=== PATIENT | female | born 1960 | race Two or more races ===

== ENCOUNTER → 2024-10-06 | Outpatient (CLI) | payer OTHER ==
[2024-10-06 10:11] LABS: Hematocrit 39.4 % (36.0-46.0); Hemoglobin 12.7 g/dL (12.2-16.2); Mean Corpuscular Hemoglobin 24.1 pg (28.0-32.0); Mean Corpuscular Volume 74.6 fL (80.0-100.0); Nucleated Red Blood Cells % 0.0 %
[2024-10-06 10:41] LABS: Alanine Aminotransferase 17 U/L (7-40); Alkaline Phosphatase 92 U/L (46-116); Anion Gap 10 (5-15); BUN/Creatinine Ratio 10.7 (10.0-20.0); Bilirubin, Total 0.5 mg/dL (0.2-1.0); Blood Urea Nitrogen 9 mg/dL (9-23); Calcium 9.2 mg/dL (8.7-10.4); Carbon Dioxide 27 mmol/L (20-31); Chloride 105 mmol/L (98-107); Glucose 93 mg/dL (74-106); HDL Cholesterol 52 mg/dL (40-59); Potassium 3.9 mmol/L (3.5-5.1); Sodium 142 mmol/L (136-145); Total Protein 7.5 g/dL (5.7-8.2)
[2024-10-06 10:43] LABS: Albumin 4.9 g/dL (3.2-4.8); Cholesterol 246 mg/dL (< 200); Triglycerides 223 mg/dL (< 150)
== END | disposition home or self-care (01) ==
LOC: LAB 09:47
PROVIDERS: ATTEND Nurse Practitioner Family
DX: I10 Essential (primary) hypertension (principal); E66.9 Obesity, unspecified; Z00.01 Encounter for general adult medical examination with abnormal findings
CPT/HCPCS: 36415; 80053; 80061; 82306; 84443; 85025

== ENCOUNTER → 2024-12-03 | Outpatient (CLI) | payer OTHER | END | disposition home or self-care (01) | LOC: Rad HDHVI 09:03 | PROVIDERS: ATTEND Internal Medicine Cardiovascular Disease | DX: I10 Essential (primary) hypertension (principal) | CPT/HCPCS: 93306 ==

== ENCOUNTER 2024-12-15 09:05 | Outpatient (CLI) | payer OTHER ==
[~2024-12-15] VITALS: Ht 162.6 cm; Wt 78.9 kg
== END 2024-12-15 17:00 | disposition home or self-care (01) ==
LOC: Rad HDHVI 09:05
PROVIDERS: ATTEND Internal Medicine Cardiovascular Disease
DX: R00.0 Tachycardia, unspecified (principal); I49.1 Atrial premature depolarization; I49.3 Ventricular premature depolarization; Z13.6 Encounter for screening for cardiovascular disorders; I10 Essential (primary) hypertension; E78.00 Pure hypercholesterolemia, unspecified; R06.02 Shortness of breath; Z82.49 Family history of ischemic heart disease and other diseases of the circulatory system
CPT/HCPCS: 78452; 93017; A9500; 96374

== ENCOUNTER 2025-01-20 09:00 | Outpatient (CLI) | payer OTHER | END 2025-01-20 17:00 | disposition home or self-care (01) | LOC: Rad HDHVI 09:00 | PROVIDERS: ATTEND Internal Medicine Cardiovascular Disease | DX: I10 Essential (primary) hypertension (principal) | CPT/HCPCS: 93880 ==

== ENCOUNTER → 2025-02-06 | Day surgery (SDC) | payer OTHER ==
[2025-02-04 10:42] LABS: Hematocrit 39.7 % (36.0-46.0); Hemoglobin 12.9 g/dL (12.2-16.2); Mean Corpuscular Hemoglobin 26.3 pg (28.0-32.0); Mean Corpuscular Volume 81.1 fL (80.0-100.0); Nucleated Red Blood Cells % 0.0 %
[2025-02-04 11:00] LABS: INR 0.94 (0.9-1.15); Partial Thromboplastin Time 24.8 SEC (24.5-34.5); Prothrombin Time 10.0 sec (9.3-11.8)
[2025-02-04 11:05] LABS: Alanine Aminotransferase 37 U/L (7-40); Albumin 4.6 g/dL (3.2-4.8); Alkaline Phosphatase 109 U/L (46-116); Anion Gap 7 (5-15); BUN/Creatinine Ratio 17.3 (10.0-20.0); Bilirubin, Total 0.5 mg/dL (0.2-1.0); Blood Urea Nitrogen 17 mg/dL (9-23); Calcium 9.5 mg/dL (8.7-10.4); Carbon Dioxide 30 mmol/L (20-31); Chloride 104 mmol/L (98-107); Glucose 93 mg/dL (74-106); Potassium 4.0 mmol/L (3.5-5.1); Sodium 141 mmol/L (136-145); Total Protein 7.8 g/dL (5.7-8.2)
[2025-02-04 11:07] LABS: Urine Protein, UAD Negative (Negative)
[~2025-02-06] VITALS: Ht 162.6 cm; Wt 80.7 kg
[~2025-02-06] MED LIST: ATOR10TA PO; CHOL20007 PO; FINA5TAB4 PO; MELA3TAB27 PO; MULT-1166 PO; VALS1TAB57 PO; [UNRECOGNIZED DRUG - CODE] PO
[2025-02-06] MEDS: fentaNYL CITRATE 100 MCG/2 ML VL ONE (09:24)
[2025-02-06] MEDS: MIDAZOLAM HCL 2MG/2ML 2ml VIAL (1mg/ml) ONE (09:24)
[2025-02-06 09:48] VITALS: PULSE 85; RESP 16; TEMP 97.6; O2SAT 96
--- NOTE | 2025-02-06 09:51 | DVHNC2 ---
Procedure - DATE: FEBRUARY 06, 2025 PROCEDURE PERFORMED BY: KEL MELÉNDEZ MD REFERRING PROVIDER: STEVIE REYES PROCEDURE PERFORMED: 1. COLONOSCOPY WITH MODERATE SEDATION 2. COLONOSCOPY WITH ENDOSCOPIC MUCOSAL RESECTION 3. COLONOSCOPY WITH ENDOCLIP PLACEMENT X3 PREPROCEDURE DIAGNOSIS: 1. COLON CANCER SCREENING POSTPROCEDURE DIAGNOSIS: 1. 2 CM FLAT ASCENDING COLON POLYP 2. MODERATE LEFT-SIDED DIVERTICULOSIS 3. SMALL INTERNAL EXTERNAL HEMORRHOIDS INDICATIONS FOR PROCEDURE: THE PATIENT IS A 64-YEAR-OLD MALE PRESENTS FOR OUTPATIENT COLONOSCOPY FOR SCREENING. HE IS AT AVERAGE RISK. MEDICATIONS USED: 5 MG OF VERSED IV AND 75MCG OF FENTANYL IV DETAILS OF THE PROCEDURE: Informed consent was obtained after risks benefits and alternatives were discussed at length with the patient. The patient gave consent to the procedure as well as a medication used for sedation. He was placed in the left lateral decubitus position. Digital rectal exam showed internal hemorrhoids. An Olympus variable torsion pediatric colonoscope was inserted into the rectum and advanced to the cecum. The cecum was identified by the ileocecal valve and the appendiceal orifice. The scope was then withdrawn. The prep was good with only small amounts and stool. [place] bowel prep score of nine was noted. The patient had one 2 cm flat polyp in the ascending colon that needed to be lifted with endo left in removed with hot snare. Attempt at cold snare was not successful. The polyp was completely removed in one piece with hot snare polypectomy. The patient had moderate left-sided diverticulosis. Retroflexion showed internal hemorrhoids. More than 10 minutes withdrawal time was noted. The patient tolerated the procedure well. COLONOSCOPY START TIME: 929 CECUM TIME: 931 COLONOSCOPY END TIME: 945 IMPRESSION: 1. Ascending colon polyp 2. Diverticulosis of colon 3. Small internal external hemorrhoids RECOMMENDATIONS: 1. FOLLOW UP WITH PRIMARY CARE PHYSICIAN 2. HIGH-FIBER DIET 3. REPEAT COLONOSCOPY IN 3 YEARS UNLESS OTHERWISE INDICATED BY SYMPTOMS OR FAMILY HISTORY OR PATHOLOGY 4. WE WILL OBSERVE FOR ANY IMMEDIATE COMPLICATION I WOULD LIKE TO THANK DR. STEVIE REYES FOR THIS REFERRAL KEL MELÉNDEZ MD Feb 06, 2025 09:51
[2025-02-06 10:10] VITALS: BP 109/64; PULSE 83; RESP 15; O2SAT 95
== END | disposition home or self-care (01) ==
LOC: GI 07:42
PROVIDERS: ATTEND Internal Medicine
DX: Z12.11 Encounter for screening for malignant neoplasm of colon (principal); D12.2 Benign neoplasm of ascending colon; K63.5 Polyp of colon; K57.30 Diverticulosis of large intestine without perforation or abscess without bleeding; K64.8 Other hemorrhoids; K64.4 Residual hemorrhoidal skin tags; I10 Essential (primary) hypertension; E78.00 Pure hypercholesterolemia, unspecified; Z79.899 Other long term (current) drug therapy; Z98.891 History of uterine scar from previous surgery; Z98.890 Other specified postprocedural states
CPT/HCPCS: 36415; 45385; 80053; 81001; 85025; 85610; 85730; 88305; A4649; J2250; J3010; 99152